=== PATIENT | female | born 1950 | race Asian ===

== ENCOUNTER 2016-07-01 23:17 | Emergency (ER) | payer OTHER, MEDICARE ==
[2016-07-02 01:01] LABS: BASOPHIL % 0.7 % (0-2); PLATELET COUNT 217 x10^3mcL (130-400)
[2016-07-02 01:16] LABS: RED CELL DISTRIBUTION WIDTH 16.2 % (11.5-14.5)
[2016-07-02 02:01] VITALS: BP 149/76
== END 2016-07-02 02:01 | disposition home or self-care (01) ==
LOC: ED 23:17
PROVIDERS: Emergency Medicine
DX: R04.0 Epistaxis (principal)

== ENCOUNTER 2016-07-03 20:12 | Emergency (ER) | payer OTHER, MEDICARE ==
[2016-07-03 21:07] VITALS: BP 141/69
== END 2016-07-03 21:07 | disposition home or self-care (01) ==
LOC: ED 20:12
DX: R04.0 Epistaxis (principal); I10 Essential (primary) hypertension; Z88.0 Allergy status to penicillin